=== PATIENT | male | born 1955 | race Caucasian/White ===

== ENCOUNTER 2016-12-04 12:37 | Emergency (ER) | payer OTHER ==
[~2016-12-04 12:37] MED LIST: ADV250/50 INH; ALBUTEROL S2 MG/5 ML; BACLOFEN10 MG PO; BG MC; CLINDAMYCIN HC300 MG PO; CLONIDINE HCL0.1 MG PO; COLACE100 MG PO; DOCUSATE SODIU250 MG PO; ESCITALOPRAM20 M1 PO; GLU500 PO; GOOD SENSE ASPI81 M3 PO; HUMULIN R100 U/1 M1 IJ; KADIAN20 MG PO; LAC PO; LEVAQUIN750 MG PO; LEXAPRO20 MG PO; LIDODERM51 TP; LIPI20 PO; LOVAZA1 G1 PO; MEDDP PO; METP PO; MILK OF MA400 MG/5 M PO; MOBIC15 MG PO; MORPHINE SULFAT15 MG PO; MP PO; NEU300 PO; NEXIUM40 MG PO; NIC14 TD; NITROGLYCERIN0.4 MG SL; NOR10 PO; OXYCODONE AND A1 TA1 PO; PRILOSEC20 MG PO; PROAIR HFA0.09 MG/A1 INH; PROMETHAZINE HY25 M1 PO; SENNA8.6 M2 PO; SEROQUEL25 MG PO; STROVITE ONE1 TAB; TRAZODONE HYDR150 MG; TRAZODONE50 M1 PO; TYLENOL EXTRA500 M2 PO; ZESTRIL5 MG PO; ZOCOR20 MG PO; [UNRECOGNIZED DRUG - OTHER] OU
[2016-12-04 13:05] LABS: BASOPHIL % 0.5 % (0-2); PLATELET COUNT 178 x10^3mcL (130-400); RED CELL DISTRIBUTION WIDTH 14.3 % (11.5-14.5)
[2016-12-04 14:43] LABS: CALCIUM 9.2 mg/dL (8.5-10.1); CARBON DIOXIDE 24.2 mmol/L (21-32); CHLORIDE SERUM 105 mmol/L (98-107); CREATININE SERUM 0.9 mg/dL (0.7-1.3); GFR1 > 60 mL/min; GLUCOSE SERUM 108 mg/dL (74-106); POTASSIUM SERUM 4.5 mmol/L (3.5-5.1); SODIUM SERUM 140 mmol/L (136-145)
[2016-12-04 14:48] LABS: ALBUMIN 3.9 g/dL (3.4-5.0); ALKALINE PHOSPHATASE 94 U/L (46-116); ALT/SGPT 61 U/L (16-63); AST/SGOT 36 U/L (15-37); BILIRUBIN TOTAL 0.33 mg/dL (0.20-1.00); TOTAL PROTEIN, SERUM 7.6 g/dL (6.4-8.2)
[2016-12-04 15:06] LABS: microscopic required? NO
[2016-12-04 15:19] LABS: UA SPECIFIC GRAVITY 1.015 (1.005-1.035); urine erythrocyte NEGATIVE (NEGATIVE)
[2016-12-04 19:41] VITALS: BP 114/65
== END 2016-12-04 19:41 | disposition home or self-care (01) ==
LOC: ED 12:37
PROVIDERS: Emergency Medicine
DX: R60.0 Localized edema (principal); R10.9 Unspecified abdominal pain; F17.200 Nicotine dependence, unspecified, uncomplicated; I10 Essential (primary) hypertension; E11.9 Type 2 diabetes mellitus without complications; E78.00 Pure hypercholesterolemia, unspecified; G81.91 Hemiplegia, unspecified affecting right dominant side; J45.909 Unspecified asthma, uncomplicated; Z88.5 Allergy status to narcotic agent; Z88.6 Allergy status to analgesic agent; Z90.49 Acquired absence of other specified parts of digestive tract
CPT/HCPCS: 83880; J1885; J3010; J7613; J7644; Q0092